=== PATIENT | female | born 1990 | race African-American/Black ===

== ENCOUNTER 2020-03-20 15:39 | Emergency (ER) | payer OTHER ==
[2020-03-20] MEDS ORDERED: ACETAMINOPHEN 325 MG TABLET PO ONE (17:33)
[2020-03-20] MEDS ORDERED: METOCLOPRAMIDE HCL INJ/PF 10 MG/2 ML SDV IV ONE (18:16)
[2020-03-20] MEDS ORDERED: DIPHENHYDRAMINE HCL 50 MG/ML VIAL IV ONE (18:16)
[2020-03-20 18:17] LABS: HEMATOCRIT 41.8 % (36.0-47.0); HEMOGLOBIN 14.4 g/dL (12.0-15.5); MEAN CORPUSCULAR HEMOGLOBIN 31.4 pg (27.0-33.4); MEAN CORPUSCULAR HGB CONC 34.5 g/dL (32.0-36.0); MEAN CORPUSCULAR VOLUME 91 fl (80-97); PLATELET COUNT 250 10^3/uL (150-450); RED BLOOD COUNT 4.59 10^6/uL (3.72-5.28); RED CELL DISTRIBUTION WIDTH 13.3 % (11.5-14.0); WHITE BLOOD COUNT 20.1 10^3/uL (4.0-10.5)
--- NOTE | 2020-03-20 18:20 | ER Document Report ---
ED General - General Chief Complaint: Headache Stated Complaint: SHORT OF BREATH, HEADACHE Primary Care Provider: HALEY MUSE MD [Primary Care Provider] - Follow up as needed - HPI Notes: 30-year-old female history of migraines times many years presents with few days of feeling like she is short of breath when she walks up the stairs and takes a deep breath, myalgia, mild generalized headache, diffuse abdominal discomfort. Patient denies any neck pain or stiffness, fever, cough, DVT/PE/hypercoagulable story in self or family, lower extremity edema, recent travel/surgery/immobilization, cancer history, exogenous estrogen therapy, trauma, dizziness/syncope, cardiac history, hypertension/hyperlipidemia/diabetes/smoking, premature cardiac history and family, vomiting, diarrhea/constipation/melena/bright red blood per rectum, weakness/numbness, change in vision/speech/gait, unexplained weight loss, morning headaches, confusion, neck pain/rigidity, anticoagulation, bleeding diatheses - Related Data Allergies/Adverse Reactions: No Known Allergies Allergy (Verified 03/20/20 15:57) Past Medical History - General Information source: Patient - Social History Smoking Status: Never Smoker Family History: Reviewed & Not Pertinent Patient has homicidal ideation: No Neurological Medical History: Reports: Hx Migraine Endocrine Medical History: Reports: Hx Diabetes Mellitus Type 2 - prediabetic [place] [facility] [place] Systems - Review of Systems Notes: REVIEW OF SYSTEMS: CONSTITUTIONAL : Denies fever, chills, or sweats. EENT: Denies recent cold/sinus symptoms, denies throat pain CARDIOVASCULAR: Denies chest pain, CURLY RESPIRATORY: Denies cough, +shortness of breath. GASTROINTESTINAL: +abdominal pain, -nausea/vomiting. GENITOURINARY: Denies difficulty urinating, painful urination. FEMALE GENITOURINARY: Denies abnormal vaginal bleeding, vaginal discharge. MUSCULOSKELETAL: Denies neck pain, back pain. SKIN: Denies rash or skin lesions. HEMATOLOGIC : Denies easy bruising or bleeding. LYMPHATIC: Denies swollen, enlarged glands. NEUROLOGICAL: + headache, denies change in gait. PSYCHIATRIC: Denies anxiety or stress or depression. Physical Exam - Vital signs Vitals: Temp Pulse Resp BP Pulse Ox 98.1 F 107 H 18 122/81 100 03/20/20 15:58 03/20/20 15:58 03/20/20 15:58 03/20/20 15:58 03/20/20 15:58 - Notes Notes: PHYSICAL EXAMINATION: GENERAL: Well-appearing, well-nourished and in no acute distress. HEAD: Atraumatic, normocephalic. EYES: Pupils equal round and appropriate constriction, sclera anicteric, conjunctiva are normal. ENT: nares patent, moist mucous membranes. NECK: Normal range of motion, supple without lymphadenopathy LUNGS: Breath sounds clear to auscultation bilaterally and equal. No wheezes rales or rhonchi. HEART: Borderline tachy regular rhythm without murmurs ABDOMEN: Soft, nontender, no guarding, no masses, no CVAT EXTREMITIES: Normal range of motion, no pitting or edema. No cyanosis. NEUROLOGICAL: Awake, alert, conversing appropriately, moves all extremities spontaneously. Steady narrow-base gait. Cranial nerves II through XII intact bilaterally, normal [id number], and sensation normal in all extremities PSYCH: Normal mood, normal affect. SKIN: Warm, Dry, normal turgor, no rashes or lesions noted. Course - Re-evaluation Re-evalutation: 03/20/20 18:23 Constellation of symptoms likely viral syndrome, rule out COVID-19. Patient has no respiratory distress in the ED, speaking in full sentences without any increased respiratory effort, normal lung exam. Given patient's tachycardia will rule out PE with dimer, as patient's well score puts her in low risk. Will obtain chest x-ray, EKG, troponin, dimer, reassess, likely recommend quarantine until the test returns PCP follow-up. Patient's headache with all benign factors, not consistent with meningitis, intracranial hemorrhage, dural sinus thrombosis, IIH, no symptoms suggestive of mass occupying lesion. 03/20/20 21:04 Neutrophil predominant leukocytosis on CBC possibly secondary to viral syndrome but given mild presentation of symptoms and market leukocytosis recommended to patient that she follow-up with primary doctor to have repeat labs drawn in case of underlying leukemia or inflammatory disease. Patient demonstrated understanding of this and says she will contact her primary doctor this week. Otherwise patient feels greatly improved after fluids and pain meds, pain remains unchanged and benign, COVID test sent, patient instructed to quarantine, patient ready for discharge. Given extensive return to ED precautions which she demonstrated understanding of. 03/20/20 21:06 - Vital Signs Vital signs: Temp Pulse Resp BP Pulse Ox 98.3 F 89 15 111/68 100 03/20/20 20:26 03/20/20 20:26 03/20/20 20:26 03/20/20 20:26 03/20/20 20:26 - Laboratory Result Diagrams: 03/20/20 17:36 03/20/20 19:22 Laboratory results interpreted by me: 03/20/20 03/20/20 17:36 19:22 WBC 20.1 H Seg Neuts % (Manual) 87 H Lymphocytes % (Manual) 8 L Abs Neuts (Manual) 17.5 H Sodium 135.7 L Discharge - Discharge Clinical Impression: Shortness of breath Headache Qualifiers: Headache type: unspecified Headache chronicity pattern: episodic headache Intractability: not intractable Qualified Code(s): R51 - Headache Condition: Good Disposition: HOME, SELF-CARE Additional Instructions: Headache The physician does not feel that the headache you are experiencing has a serious underlying cause. Most headaches are due to emotional stress, with resultant muscle tension (tension headache). Occasionally, headaches are secondary to changes in the blood vessels of the scalp (vascular headache and migraine headache). Sometimes, a headache is the first symptom of another developing illness, such as a viral infection. You have no evidence of stroke, bleeding, meningitis, or other serious cause of your headache. The treatment of headaches varies with the severity and cause of the pain. Not all headaches need pain shots. In fact, there is evidence that using narcotics for headaches may make them worse in the long run. The physician will determine the therapy that's in your best interest. If you develop a fever, if the headache is different from any you've previously experienced, or if the headache progressively worsens, then call your physician at once or go to the emergency room. Dyspnea, Nonspecific You were evaluated for shortness of breath, or dyspnea. Dyspnea has many causes, and some are more serious than others. Sometimes it's impossible to diagnose the cause of dyspnea with the tests that are available on an emergency basis. Based on our evaluation today, you do not need hospitalization now. We found no evidence of pneumonia, collapsed lung, blood clots in the lung, tumors, or heart failure. Causes of non-specific dyspnea can include asthma or bronchospasm, hype rventilation, emotional distress, heart disease, emphysema, fibrosis of the lung, and stiffness of the chest wall. In healthy individuals with a single episode, it's sometimes reasonable to do nothing but wait to see if the problem occurs again. Additional tests used to evaluate dyspnea can include cardiac stress testing, echocardiography, pulmonary function testing, CAT scan of the chest, bronchoscopy or pulmonary biopsy. Return if shortness of breath persists or worsens, or if you develop chest pain, fever, cough, confusion, or fainting. As a person under investigation for Covid 19, the Count includes the [facility], division of public health advises you to adhere to the following guidance until your test results are reported to you. If your test result is positive, you will receive additional information from your provider and your local health department at that time. Remain at home until you are cleared by the health provider or public health authorities. Keep a log of visitors to your home, notify any visitors to your home of your isolation status. If you plan to move to a new address or leave the county, notify the local health department in your County. Call your doctor or seek care if you have an urgent medical need. Before seeking medical care, call ahead to get instructions from the provider before arriving at the medical office clinic or hospital. Notify them that you are being tested for the virus that causes Covid 19 so that arrangements can be made, as necessary, to prevent transmission to others in the healthcare setting. Next, notify the local health department in your formerly [facility]. If a medical emergency arises and you need to call 911, inform the first responders that you are being tested for the virus that causes Covid 19. Next, notify the local health department in your county. You had leukocytosis with a white blood cell count of 20, as noted in the results that were printed out for you. You also had mildly abnormal calcium and mildly low sodium. Increase the amount of salty foods and water intake over the next several days. Follow-up with your primary doctor about these abnormalities within 1 week. Return to ED immediately if you feel worse, chest pain, shortness of breath, fainting, confusion, neck pain or stiffness, or any other worsening or alarming symptoms. Referrals: HALEY MUSE MD [Primary Care Provider] - Follow up as needed
--- NOTE | 2020-03-20 18:23 | RADIOLOGY REPORT (SQ) ---
EXAM DESCRIPTION: CHEST SINGLE VIEW IMAGES COMPLETED DATE/TIME: 03/20/2020 5:03 pm REASON FOR STUDY: cp COMPARISON: None. EXAM PARAMETERS: NUMBER OF VIEWS: One view. TECHNIQUE: Single frontal radiographic view of the chest acquired. RADIATION DOSE: NA LIMITATIONS: None. FINDINGS: LUNGS AND PLEURA: No opacities, masses or pneumothorax. No pleural effusion. MEDIASTINUM AND HILAR STRUCTURES: No masses. Contour normal. HEART AND VASCULAR STRUCTURES: Heart normal in size. Normal vasculature. BONES: No acute findings. HARDWARE: None in the chest. OTHER: No other significant finding. IMPRESSION: NO ACUTE RADIOGRAPHIC FINDING IN THE CHEST. TECHNICAL DOCUMENTATION: JOB ID: [id number] 2010 [employer]- All Rights Reserved Reading location - IP/workstation name: [email or web address]
[2020-03-20] MEDS: NORMAL SALINE 1000 ML 1,000 ML IV PRN ×2 (18:28→19:45)
[2020-03-20 18:37] LABS: ABSOLUTE LYMPHOCYTES# (MANUAL) 1.6 10^3/uL (0.5-4.7); BASOPHILS % (MANUAL) 0 % (0-2); EOSINOPHILS % (MANUAL) 0 % (0-6); LYMPHOCYTES % (MANUAL) 8 % (13-45); MONOCYTES % (MANUAL) 5 % (3-13); SEGMENTED NEUTROPHILS % (MAN) 87 % (42-78); TOTAL CELLS COUNTED 100
[2020-03-20 18:39] LABS: OVALOCYTES SLIGHT; PLATELET COMMENT ADEQUATE; POIKILOCYTOSIS SLIGHT
[2020-03-20 19:52] LABS: ALBUMIN 3.8 g/dL (3.5-5.0); ALKALINE PHOSPHATASE 66 U/L (38-126); ANION GAP 8 (5-19); ASPARTATE AMINO TRANSFERASE 22 U/L (14-36); BILIRUBIN,TOTAL 0.5 mg/dL (0.2-1.3); BLOOD UREA NITROGEN 7 mg/dL (7-20); CALCIUM 8.7 mg/dL (8.4-10.2); CARBON DIOXIDE 25 mmol/L (22-30); CHLORIDE 103 mmol/L (98-107); GLUCOSE 83 mg/dL (75-110); POTASSIUM 4.2 mmol/L (3.6-5.0)
[2020-03-20 20:27] VITALS: BP 111/68
--- NOTE | 2020-03-20 20:29 | EKG REPORT ---
SEVERITY:- BORDERLINE ECG - SINUS TACHYCARDIA PROBABLE LEFT ATRIAL ABNORMALITY : Confirmed by: Joe Fonseca MD 20-Mar-2020 20:29:00
== END 2020-03-20 21:35 | disposition home or self-care (01) ==
LOC: ER 15:39
DX: R06.02 Shortness of breath (principal); R51 Headache; M79.10 Myalgia, unspecified site; R10.84 Generalized abdominal pain; D72.828 Other elevated white blood cell count; R00.0 Tachycardia, unspecified; Z20.828 Contact with and (suspected) exposure to other viral communicable diseases; Z86.69 Personal history of other diseases of the nervous system and sense organs
CPT/HCPCS: 93005; 99285; 96361; 96374; 96375; 36415; 85025; 87635; 81025; 80053; 84484; 85379; 71045; 93010; J1200; J2765; J7030; C9803